=== PATIENT | male | born 1965 | race Caucasian/White ===

== ENCOUNTER 2022-03-05 13:22 | Day surgery (SDC) | payer OTHER ==
[~2022-03-05] VITALS: Ht 167.6 cm; Wt 176.8 kg
[2022-03-05] MEDS ORDERED: GABA400 (14:18)
[2022-03-05] MEDS ORDERED: LISI20 (14:18)
== END 2022-03-05 16:50 | disposition home or self-care (01) ==
LOC: ORSCSDS 13:22
PROVIDERS: Student in an Organized Health Care Education/Training Program
PROC: 0DBL8ZX Excision of Transverse Colon, Via Natural or Artificial Opening Endoscopic, Diagnostic (ICD-10-PCS; principal; 2022-03-05 15:00)
DX: Z12.11 Encounter for screening for malignant neoplasm of colon (principal); D12.3 Benign neoplasm of transverse colon; I10 Essential (primary) hypertension; E78.5 Hyperlipidemia, unspecified; Z86.73 Personal history of transient ischemic attack (TIA), and cerebral infarction without residual deficits; Z79.899 Other long term (current) drug therapy
CPT/HCPCS: 88305; J0461; J2250; J2405; J2704; J7120